=== PATIENT | male | born 1980 | race Caucasian/White ===

== ENCOUNTER 2019-02-16 15:25 | Inpatient (IN) | payer MEDICAID ==
[~2019-02-16] VITALS: Ht 175.3 cm; Wt 73.2 kg
[2019-02-16 16:25] LABS: BASOPHILS % (AUTO) 0.5 % (0.0-2.0); EOSINOPHILS % (AUTO) 0.9 % (1.0-6.0); HEMATOCRIT 43.5 % (41-53); HEMOGLOBIN 14.7 g/dL (13.5-17.5); LYMPHOCYTES # (AUTO) 1.1 K/uL (1.0-4.8); MEAN CORPUSCULAR HEMOGLOBIN 28.7 pg (26.0-34.0); MEAN CORPUSCULAR HGB CONC 33.7 G/dL (31.0-37.0); MEAN CORPUSCULAR VOLUME 85 fL (80-100); MONOCYTES # (AUTO) 0.9 K/uL (0.1-1.0); MONOCYTES % (AUTO) 10.1 % (2.0-9.0); NEUTROPHILS # (AUTO) 6.4 K/uL (1.8-7.7); NEUTROPHILS % (AUTO) 75.5 % (40.0-70.0); PLATELET COUNT (AUTO) 279 K/uL (150-450); RED BLOOD CELL COUNT(AUTO) 5.11 MIL/uL (4.50-5.90); RED CELL DISTRIBUTION WIDTH 14.2 % (11.5-14.5)
[2019-02-16 16:32] LABS: ANION GAP 4 mmol/L (8-16); CALCIUM, TOTAL 8.5 mg/dL (8.8-10.5); CARBON DIOXIDE 31 mmol/L (22-29); CHLORIDE 103 mmol/L (98-107); CREATININE 1.31 mg/dL (0.60-1.30); GLOMERULAR FILTR. RATE CALC > 60 mL/min (>60); GLUCOSE,RANDOM 140 mg/dL (70-110); POTASSIUM 4.2 mmol/L (3.5-5.1); SODIUM SERUM 138 mmol/L (136-145); UREA NITROGEN, BLOOD 20 mg/dL (7-18)
[2019-02-16 16:38] LABS: ALANINE AMINOTRANSFERASE 137 U/L (12-78); ALBUMIN 3.4 g/dL (3.4-5.0); ALKALINE PHOSPHATASE 69 U/L (46-116); ASPARTATE AMINOTRANSFERASE 49 U/L (15-37); BILIRUBIN,TOTAL 0.3 mg/dL (0.1-1.0); TOTAL PROTEIN, SERUM 7.4 g/dL (6.4-8.2)
[2019-02-16] MEDS ORDERED: ZOLPIDEM TARTRATE 10 MG TABLET PO PRN (17:15)
[2019-02-16] MEDS: HALOPERIDOL 5 MG TABLET PO PRN (18:22)
[2019-02-16] MEDS: LORazepam 2 MG TABLET PO PRN (18:24)
[2019-02-16 19:44] VITALS: BP 107/77
[2019-02-17] MEDS: HALOPERIDOL 5 MG TABLET PO PRN ×3 (10:08→16:19)
[2019-02-17] MEDS: LORazepam 2 MG TABLET PO PRN ×2 (10:08→16:19)
[2019-02-17 17:12] VITALS: BP 134/74
[2019-02-18] MEDS: LORazepam 2 MG TABLET PO PRN ×3 (01:59→14:08)
[2019-02-18 02:32] VITALS: BP 126/98
[2019-02-18] MEDS: HALOPERIDOL 5 MG TABLET PO PRN ×2 (07:57→14:39)
[2019-02-18] MEDS: BuPROPion HCL XL 150 MG ER TABLET PO SCH (08:14)
[2019-02-18 08:44] VITALS: BP 127/83
[2019-02-19 09:11] VITALS: BP 147/68
[2019-02-19] MEDS: BuPROPion HCL XL 150 MG ER TABLET PO SCH (09:29)
[2019-02-19] MEDS: LORazepam 2 MG TABLET PO PRN (10:34)
[2019-02-19 16:31] VITALS: BP 136/96
[2019-02-19] MEDS: QUEtiapine FUMARATE 25 MG TABLET PO SCH (17:43)
[2019-02-20 09:22] VITALS: BP 120/67
[2019-02-20] MEDS: LORazepam 2 MG TABLET PO PRN ×2 (09:45→16:26)
[2019-02-20] MEDS: QUEtiapine FUMARATE 25 MG TABLET PO SCH ×2 (09:46→17:36)
[2019-02-20] MEDS: BuPROPion HCL XL 150 MG ER TABLET PO SCH (09:46)
[2019-02-20] MEDS: HALOPERIDOL 5 MG TABLET PO PRN (16:26)
[2019-02-20 16:50] VITALS: BP 110/68
[2019-02-21] MEDS: QUEtiapine FUMARATE 25 MG TABLET PO SCH ×2 (09:00→16:45)
[2019-02-21] MEDS: BuPROPion HCL XL 150 MG ER TABLET PO SCH (09:00)
[2019-02-21 09:16] VITALS: BP 115/63
[2019-02-21 18:24] VITALS: BP 104/94
[2019-02-22 09:15] VITALS: BP 100/66
[2019-02-22] MEDS: QUEtiapine FUMARATE 25 MG TABLET PO SCH (09:20)
[2019-02-22] MEDS: BuPROPion HCL XL 150 MG ER TABLET PO SCH (09:20)
[2019-02-22] MEDS ORDERED: BUPR-93 PO (12:27)
[2019-02-22] MEDS ORDERED: QUET25TA PO (12:29)
== END 2019-02-22 14:15 | disposition home or self-care (01) | DRG 751 ==
LOC: EMS 15:25 → 3EI 19:00
PROVIDERS: ADMIT Psychiatry & Neurology Psychiatry; ATTEND Psychiatry & Neurology Psychiatry
DX: F33.2 Major depressive disorder, recurrent severe without psychotic features (principal); N17.9 Acute kidney failure, unspecified; R45.851 Suicidal ideations; F15.90 Other stimulant use, unspecified, uncomplicated; F41.9 Anxiety disorder, unspecified; N18.9 Chronic kidney disease, unspecified; Z59.0 Homelessness; Z87.891 Personal history of nicotine dependence; Z91.19 Patient's noncompliance with other medical treatment and regimen
CPT/HCPCS: G0480

== ENCOUNTER 2020-08-29 20:20 | Emergency (ER) | payer MEDICAID ==
[~2020-08-29] VITALS: Ht 175.3 cm; Wt 68.2 kg
[~2020-08-29 20:20] MED LIST: BUPR-93 PO; QUET25TA PO
[2020-08-29 23:24] VITALS: BP 118/77
== END 2020-08-30 00:11 | disposition home or self-care (01) ==
LOC: EMS 20:22
DX: T73.0XXA Starvation, initial encounter (principal); F41.9 Anxiety disorder, unspecified; F32.9 Major depressive disorder, single episode, unspecified; F17.210 Nicotine dependence, cigarettes, uncomplicated; F19.90 Other psychoactive substance use, unspecified, uncomplicated; Z59.0 Homelessness; X58.XXXA Exposure to other specified factors, initial encounter

== ENCOUNTER 2021-12-09 11:12 | Inpatient (IN) | payer MEDICAID ==
[~2021-12-09] VITALS: Ht 175.3 cm; Wt 74.1 kg
[2021-12-09] MEDS ORDERED: ZOLPIDEM TARTRATE 10 MG TABLET PO PRN (13:00)
[2021-12-09 14:36] VITALS: BP 105/72
[2021-12-09] MEDS ORDERED: INFLUENZA VIRUS VACCINE QVS 2021-22 (6MO+)/PF 60 MCG/0.5 ML SYRINGE IM. ONE (14:45)
[2021-12-09] MEDS ORDERED: PNEUMOCOCCAL VACCINE POLYVALENT 0.5 ML VIAL [PPSV23] IM. ONE (14:45)
[2021-12-09] MEDS: LORazepam 2 MG TABLET PO PRN (15:36)
[2021-12-09 16:02] VITALS: BP 110/70
[2021-12-10 00:44] VITALS: BP 112/73
[2021-12-10 08:04] VITALS: BP 132/82
[2021-12-10] MEDS ORDERED: MAGNESIUM HYDROXIDE SUSPENSION 30 ML UDCUP PO PRN (08:15)
[2021-12-10] MEDS ORDERED: BENZOCAINE/MENTHOL LOZENGE PO PRN (08:15)
[2021-12-10] MEDS ORDERED: CloNIDine HCL 0.1 MG TABLET PO PRN (08:15)
[2021-12-10] MEDS ORDERED: LOPERAMIDE HCL 2 MG CAPSULE PO PRN (08:15)
[2021-12-10] MEDS ORDERED: OMEPRAZOLE 20 MG CAPSULE PO PRN (08:15)
[2021-12-10] MEDS ORDERED: ALBUTEROL SULFATE HFA 90 MCG/PUFF 8 GM INHALER IH PRN (08:15)
[2021-12-10] MEDS ORDERED: MAG HYDROX/AL HYDROX/SIMETH ES 30 ML SUSPENSION UDCUP PO PRN (08:15)
[2021-12-10] MEDS ORDERED: DOCUSATE SODIUM 100 MG CAPSULE PO PRN (08:15)
[2021-12-10] MEDS ORDERED: BACITRACIN 28 GM OINTMENT TP PRN (08:15)
[2021-12-10] MEDS ORDERED: ONDANSETRON HCL 4 MG TABLET PO PRN (08:15)
[2021-12-10] MEDS ORDERED: PETROLATUM,WHITE 28 GM JELLY TP PRN (08:15)
[2021-12-10] MEDS ORDERED: IBUPROFEN 600 MG TABLET PO PRN (08:15)
[2021-12-10] MEDS ORDERED: ACETAMINOPHEN 325 MG TABLET PO PRN (08:15)
[2021-12-10] MEDS: LORazepam 2 MG TABLET PO PRN ×2 (09:12→16:43)
[2021-12-10] MEDS: HALOPERIDOL 5 MG TABLET PO PRN ×2 (09:12→16:43)
[2021-12-10 16:19] VITALS: BP 116/66
[2021-12-10] MEDS: OLANZapine 5 MG TABLET PO SCH (20:18)
[2021-12-11 04:19] VITALS: BP 129/81
[2021-12-11 08:05] VITALS: BP 110/61
[2021-12-11] MEDS: HALOPERIDOL 5 MG TABLET PO PRN (08:38)
[2021-12-11] MEDS: LORazepam 2 MG TABLET PO PRN ×2 (08:38→14:33)
[2021-12-11 16:02] VITALS: BP 113/81
[2021-12-11] MEDS: OLANZapine 5 MG TABLET PO SCH (21:05)
[2021-12-12 00:52] VITALS: BP 121/73
[2021-12-12] MEDS: LORazepam 2 MG TABLET PO PRN ×3 (01:09→14:01)
[2021-12-12 07:55] LABS: BASOPHILS % (AUTO) 0.4 % (0.0-2.0); EOSINOPHILS % (AUTO) 5.6 % (1.0-6.0); HEMATOCRIT 37.9 % (41-53); HEMOGLOBIN 12.6 g/dL (13.5-17.5); LYMPHOCYTES # (AUTO) 2.5 K/uL (1.0-4.8); LYMPHOCYTES % (AUTO) 28.6 % (22.0-44.0); MEAN CORPUSCULAR HEMOGLOBIN 26.1 pg (26.0-34.0); MEAN CORPUSCULAR HGB CONC 33.2 G/dL (31.0-37.0); MEAN CORPUSCULAR VOLUME 79 fL (80-100); MONOCYTES # (AUTO) 0.9 K/uL (0.1-1.0); MONOCYTES % (AUTO) 10.7 % (2.0-9.0); NEUTROPHILS # (AUTO) 4.7 K/uL (1.8-7.7); NEUTROPHILS % (AUTO) 54.7 % (40.0-70.0); PLATELET COUNT (AUTO) 376 K/uL (150-450); RED BLOOD CELL COUNT(AUTO) 4.82 MIL/uL (4.50-5.90); RED CELL DISTRIBUTION WIDTH 13.9 % (11.5-14.5)
[2021-12-12 08:00] VITALS: BP 112/72
[2021-12-12 08:17] LABS: ALANINE AMINOTRANSFERASE 117 U/L (12-78); ALBUMIN 2.6 g/dL (3.4-5.0); ALKALINE PHOSPHATASE 91 U/L (46-116); ANION GAP 6 mmol/L (8-16); ASPARTATE AMINOTRANSFERASE 56 U/L (15-37); BILIRUBIN,TOTAL 0.3 mg/dL (0.1-1.0); CALCIUM, TOTAL 8.3 mg/dL (8.8-10.5); CARBON DIOXIDE 27 mmol/L (22-29); CHLORIDE 103 mmol/L (98-107); CHOL/HDL RATIO 5.4 (4.2-7.3); CHOLESTEROL 114 mg/dL (131-200); CREATININE 0.93 mg/dL (0.60-1.30); FREE T4 (FREE THYROXINE) 0.85 ng/dL (0.76-1.46); GLOMERULAR FILTR. RATE CALC > 60 mL/min (>60); GLUCOSE,RANDOM 100 mg/dL (70-110); HDL CHOLESTEROL 21 mg/dL (40-60); LDL CHOL (CALC.) 69 mg/dL (0-130); POTASSIUM 4.3 mmol/L (3.5-5.1); SODIUM SERUM 136 mmol/L (136-145); THYROID STIMULATING HORMONE 3.25 uIU/mL (0.36-3.74); TOTAL PROTEIN, SERUM 9.1 g/dL (6.4-8.2); TRIGLYCERIDES 120 mg/dL (15-150); UREA NITROGEN, BLOOD 15 mg/dL (7-18)
[2021-12-12] MEDS: HALOPERIDOL 5 MG TABLET PO PRN (14:01)
[2021-12-12 16:02] VITALS: BP 103/61
[2021-12-12] MEDS: OLANZapine 5 MG TABLET PO SCH (20:50)
[2021-12-13 03:46] VITALS: BP 145/82
[2021-12-13] MEDS: LORazepam 2 MG TABLET PO PRN ×2 (12:05→18:14)
[2021-12-13] MEDS: HALOPERIDOL 5 MG TABLET PO PRN (12:05)
[2021-12-13 16:04] VITALS: BP 100/65
[2021-12-13 18:14] VITALS: BP 110/61
[2021-12-13] MEDS: OLANZapine 5 MG TABLET PO SCH (21:10)
[2021-12-14 00:44] VITALS: BP 112/68
[2021-12-14 07:41] LABS: GLUCOMETER DEV NAME(LOC) POC.BV
[2021-12-14 08:08] VITALS: BP 103/64
[2021-12-14] MEDS ORDERED: OLAN5TAB52 PO (12:16)
== END 2021-12-14 12:00 | disposition home or self-care (01) | DRG 754 ==
LOC: B2S 14:01
PROVIDERS: ADMIT Psychiatry & Neurology Psychiatry; ATTEND Psychiatry & Neurology Psychiatry
DX: F32.9 Major depressive disorder, single episode, unspecified (principal); R45.851 Suicidal ideations; F20.9 Schizophrenia, unspecified; F41.9 Anxiety disorder, unspecified; G47.00 Insomnia, unspecified; K59.00 Constipation, unspecified; F19.10 Other psychoactive substance abuse, uncomplicated; Z20.822 Contact with and (suspected) exposure to COVID-19; F17.200 Nicotine dependence, unspecified, uncomplicated; Z71.6 Tobacco abuse counseling; Z59.00 Homelessness unspecified; Z71.51 Drug abuse counseling and surveillance of drug abuser; Z28.21 Immunization not carried out because of patient refusal
CPT/HCPCS: 80053; 80061; 83036; 84436; 84439; 84443; 85025; 86592; 86593; 86780; G0480

== ENCOUNTER 2021-12-15 19:45 | Emergency (ER) | payer MEDICAID, OTHER ==
[~2021-12-15] VITALS: Ht 175.3 cm; Wt 68.2 kg
[~2021-12-15 19:45] MED LIST changes: -BUPR-93 PO; +OLAN5TAB52 PO; -QUET25TA PO
[2021-12-15] MEDS ORDERED: ACETAMINOPHEN 500 MG TABLET PO ONE (22:30)
[2021-12-15 22:34] LABS: BASOPHILS % (AUTO) 0.6 % (0.0-2.0); EOSINOPHILS % (AUTO) 4.8 % (1.0-6.0); HEMATOCRIT 37.6 % (41-53); HEMOGLOBIN 12.7 g/dL (13.5-17.5); LYMPHOCYTES # (AUTO) 2.8 K/uL (1.0-4.8); LYMPHOCYTES % (AUTO) 27.8 % (22.0-44.0); MEAN CORPUSCULAR HEMOGLOBIN 26.3 pg (26.0-34.0); MEAN CORPUSCULAR HGB CONC 33.7 G/dL (31.0-37.0); MEAN CORPUSCULAR VOLUME 78 fL (80-100); MONOCYTES # (AUTO) 0.8 K/uL (0.1-1.0); MONOCYTES % (AUTO) 8.3 % (2.0-9.0); NEUTROPHILS # (AUTO) 5.9 K/uL (1.8-7.7); NEUTROPHILS % (AUTO) 58.5 % (40.0-70.0); PLATELET COUNT (AUTO) 465 K/uL (150-450); RED BLOOD CELL COUNT(AUTO) 4.82 MIL/uL (4.50-5.90); RED CELL DISTRIBUTION WIDTH 14.4 % (11.5-14.5)
[2021-12-15 22:43] LABS: ANION GAP 5 mmol/L (8-16); CARBON DIOXIDE 30 mmol/L (22-29); CHLORIDE 99 mmol/L (98-107); CREATININE 1.11 mg/dL (0.60-1.30); GLOMERULAR FILTR. RATE CALC > 60 mL/min (>60); GLUCOSE,RANDOM 84 mg/dL (70-110); SODIUM SERUM 134 mmol/L (136-145); UREA NITROGEN, BLOOD 27 mg/dL (7-18)
[2021-12-15] MEDS ORDERED: ASPIRIN 325 MG TABLET PO ONE (22:45)
[2021-12-15 22:49] LABS: ALANINE AMINOTRANSFERASE 87 U/L (12-78); ALBUMIN 3.2 g/dL (3.4-5.0); ALKALINE PHOSPHATASE 93 U/L (46-116); ASPARTATE AMINOTRANSFERASE 67 U/L (15-37); BILIRUBIN,TOTAL 0.7 mg/dL (0.1-1.0); TOTAL PROTEIN, SERUM 9.7 g/dL (6.4-8.2)
[2021-12-15] MEDS ORDERED: LORazepam 1 MG TABLET PO ONE (23:45)
[2021-12-16 00:13] LABS: COVID AG,FIA SOURCE NASAL SWAB
[2021-12-16] MEDS ORDERED: DiphenhydrAMINE HCL 25 MG CAPSULE PO ONE (00:15)
[2021-12-16 04:26] VITALS: BP 100/60
[2021-12-16 04:43] VITALS: BP 100/60
== END 2021-12-16 00:13 | disposition home or self-care (01) ==
LOC: EMS 19:45
DX: F32.9 Major depressive disorder, single episode, unspecified (principal); R07.89 Other chest pain; F41.9 Anxiety disorder, unspecified; F15.90 Other stimulant use, unspecified, uncomplicated; F17.210 Nicotine dependence, cigarettes, uncomplicated; Z79.899 Other long term (current) drug therapy; Z20.822 Contact with and (suspected) exposure to COVID-19
CPT/HCPCS: 36415; 80053; 84484; 85025; 87426; 93005; 99284; G0480

== ENCOUNTER 2021-12-25 00:57 | Emergency (ER) | payer OTHER ==
[2021-12-25] MEDS ORDERED: PERMETHRIN 1% 60 ML LOTION TP ONE (01:45)
[2021-12-25 02:10] VITALS: BP 138/88
== END 2021-12-25 02:36 | disposition home or self-care (01) ==
LOC: EMS 00:58
DX: B85.1 Pediculosis due to Pediculus humanus corporis (principal); F15.90 Other stimulant use, unspecified, uncomplicated; F17.210 Nicotine dependence, cigarettes, uncomplicated; F41.9 Anxiety disorder, unspecified; F32.9 Major depressive disorder, single episode, unspecified
CPT/HCPCS: 99282; Z7502; Z7610

== ENCOUNTER → 2021-12-25 | Emergency (ER) | payer OTHER | END | disposition left against medical advice (07) | LOC: EMS 07:08 | DX: Z00.00 Encounter for general adult medical examination without abnormal findings (principal); Z53.21 Procedure and treatment not carried out due to patient leaving prior to being seen by health care provider ==